=== PATIENT | female | born 1985 | race Caucasian/White ===

== ENCOUNTER 2017-10-08 11:21 | Emergency (ER) | payer OTHER ==
[2017-10-08 12:48] VITALS: BP 118/78
--- NOTE | 2017-10-08 13:08 | UC ---
Throat Pain/Nasal [place] HPI - HPI Summary HPI Summary: 4-5 days of cough congestion. She has asthma but has not had wheezing or need to use albuterol. She is breast feading. No fever or chest pain. No sob or productive cough. - History of Current Complaint Chief Complaint: UCGeneralIllness Stated Complaint: COUGH,SINUSES Time Seen by Provider: 10/08/17 12:41 Hx Obtained From: Patient Hx Last Menstrual Period: 03/02/16 Onset/Duration: Gradual Onset, Lasting Days, Still Present Severity: Moderate Pain Intensity: 5 Cough: Nonproductive Associated Signs & Symptoms: Positive: Dysphagia, Sinus Discomfort. Negative: Fever, Vomiting, Rash - Allergies/Home Medications Allergies/Adverse Reactions: Allergies Allergy/AdvReac Type Severity Reaction Status Date / Time amoxicillin [From Augmentin] AdvReac See Comment Verified 10/08/17 12:43 clavulanic acid AdvReac See Comment Verified 10/08/17 12:43 [From Augmentin] Home Medications: Home Medications Cetirizine* [ZyrTEC 10 MG TAB*] 10 mg PO DAILY 10/08/17 [History Confirmed 10/08] Cyanocobalamin TAB* [Vitamin B12 TAB*] 1,000 mcg PO DAILY 10/08/17 [History Confirmed 10/08/17] FLUoxetine CAP* [PROzac CAP*] 10 mg PO DAILY 10/08/17 [History Confirmed ] Pnv No.95/Ferrous Fum/Folic AC [ Vitamin & Minera 28-0.8 mg] 1 tab PO DAILY 10/08/17 [History Confirmed 10/08/17] PMH/Surg Hx/FS Hx/Imm Hx Previously Healthy: No - asthma. - Surgical History Surgical History: None - Family History Known Family History: Positive: None, Unknown, Hypertension - Social History Lives: With Family Alcohol Use: Occasionally Substance Use Type: None Smoking Status (MU): Former Smoker Type: Cigarettes Amount Used/How Often: 1 pack per week Length of Time of Smoking/Using Tobacco: 04/06 PPD x 10 Years When Did the Patient Quit Smoking/Using Tobacco: 2016 - Immunization History Most Recent Influenza Vaccination: none Review of Systems ENT: Sore Throat, Sinus Congestion Respiratory: Cough All Other Systems Reviewed And Are Negative: Yes Physical Exam Triage Information Reviewed: Yes Appearance: Well-Appearing, No Pain Distress, Well-Nourished Vital Signs: Initial Vital Signs Temp 99.2 F 10/08/17 12:41 Pulse 100 10/08/17 12:41 Resp 16 10/08/17 12:41 BP 118/78 10/08/17 12:41 Pulse Ox 98 10/08/17 12:41 Vital Signs Reviewed: Yes Eyes: Positive: Conjunctiva Clear, Conjunctiva Inflamed ENT: Positive: Normal ENT inspection, Hearing grossly normal, Pharynx normal, Nasal congestion, TMs normal - Clear TM without redness but there is erickson mild clear effusions., Uvula midline. Negative: Pharyngeal erythema, Nasal drainage , TM bulging, TM dull, TM red, Muffled voice, Sinus tenderness Neck: Positive: Supple, Nontender, No Lymphadenopathy Respiratory: Positive: Lungs clear, Normal breath sounds, No respiratory distress. Negative: No accessory muscle use, Respiratory distress, Decreased breath sounds, Accessory muscle use, Crackles, Rhonchi, Stridor, Wheezing, Expiration Cardiovascular: Positive: No Murmur, Pulses Normal, Brisk Capillary Refill Abdomen Description: Positive: No Organomegaly, Soft. Negative: Distended, Guarding Musculoskeletal: Positive: Strength Intact, ROM Intact, No Edema Neurological: Positive: Alert, Muscle Tone Normal. Negative: Fatigued Psychological: Positive: Age Appropriate Behavior Skin: Negative: rashes Throat Pain/Nasal Course/Dx - Differential Dx/Diagnosis Provider Diagnoses: uri viral. early sinusitis. Discharge - Sign-Out/Discharge Documenting (check all that apply): Patient Departure - Discharge Plan Condition: Good Disposition: HOME Prescriptions: Azithromyxin CONNOR (NF) [Z-Connor (Zithromax) 250 mg tabs #6] 2 tab PO .TODAY, THEN 1 DAILY #6 tab Patient Education Materials: Upper Respiratory Infection (ED) Referrals: Lakesha Yates [Primary Care Provider] - Additional Instructions: Take the antiobiotic if not better in about 3-5 days. For now focus on nasal irrigation. - Billing Disposition and Condition Condition: GOOD Disposition: Home
== END 2017-10-08 13:05 | disposition home or self-care (01) ==
LOC: UCCORT 11:21
DX: J32.9 Chronic sinusitis, unspecified (principal); J06.9 Acute upper respiratory infection, unspecified; J45.909 Unspecified asthma, uncomplicated; Z88.0 Allergy status to penicillin; Z87.891 Personal history of nicotine dependence
CPT/HCPCS: 99212; G0463

== ENCOUNTER 2019-01-09 16:23 | Emergency (ER) | payer OTHER ==
[2019-01-09 16:51] VITALS: BP 146/93
--- NOTE | 2019-01-09 17:20 | UC ---
Respiratory Complaint HPI - HPI Summary HPI Summary: C/O cough with wheezing x 6 days. Seen in the ER 01/07 and given benzonatate. Not helping. Still smoking 2 cigarettes/ day. - History of Current Complaint Chief Complaint: UCRespiratory Stated Complaint: COUGH/WHEEZE/SORE THROAT/DIARRHEA Hx Obtained From: Patient Hx Last Menstrual Period: "couple weeks ago" ?: No Onset/Duration: Sudden Onset, Lasting Days - 6, Still Present Timing: Constant Severity Initially: Mild Severity Currently: Mild Pain Intensity: 3 Character: Cough: Nonproductive Aggravating Factors: Deep Breaths, Recumbent Position Alleviating Factors: Nothing Associated Signs And Symptoms: Positive: Wheezing, URI, Nasal Congestion, Sinus Discomfort - 2 days ago. Better - Risk Factors Pulmonary Embolism Risk Factors: Smoking Cardiac Risk Factors: Smoking - Allergies/Home Medications Allergies/Adverse Reactions: Allergies Allergy/AdvReac Type Severity Reaction Status Date / Time No Known Allergies Allergy Verified 01/09/19 16:45 Home Medications: Home Medications Sertraline* [Zoloft*] 20 mg DAILY 01/09/19 [History Confirmed 01/09/19] cloNIDine TAB* [Catapres 0.1 MG TAB*] 1 tab QPM 01/09/19 [History Confirmed 03/18] PMH/Surg Hx/FS Hx/Imm Hx Respiratory History: Pneumonia - Surgical History Surgical History: None - Family History Known Family History: Positive: Hypertension Negative: Diabetes - Social History Occupation: Employed Full-time Lives: With Family Alcohol Use: Occasionally Substance Use Type: None Smoking Status (MU): Light Every Day Tobacco Smoker Type: Cigarettes Amount Used/How Often: 2-4 cigs/day Length of Time of Smoking/Using Tobacco: 04/06 PPD x 10 Years When Did the Patient Quit Smoking/Using Tobacco: 2017 Cessation Counseling: Patient Advised to Stop - Immunization History Most Recent Influenza Vaccination: none Review of Systems All Other Systems Reviewed And Are Negative: Yes Respiratory: Positive: Shortness Of Breath, Cough Physical Exam Triage Information Reviewed: Yes Appearance: Well-Appearing, No Pain Distress, Well-Nourished Vital Signs: Initial Vital Signs Temp 98.4 F 01/09/19 16:47 Pulse 98 01/09/19 16:47 Resp 16 01/09/19 16:47 BP 146/93 01/09/19 16:47 Pulse Ox 98 01/09/19 16:47 Vital Signs Reviewed: Yes Eyes: Positive: Conjunctiva Clear ENT: Positive: Pharynx normal, Nasal congestion - with allergic changes., TMs normal Neck exam: Normal Respiratory: Positive: Wheezing - diffuse moderate inspiratory and expiratory wheezes. Cardiovascular: Positive: RRR, No Murmur Musculoskeletal Exam: Normal Neurological Exam: Normal Psychological Exam: Normal Skin Exam: Normal Respiratory Course/Dx - Differential Dx/Diagnosis Differential Diagnosis/HQI/PQRI: Asthma, Laryngitis, Lower Resp Infection, Sinusitis Provider Diagnosis: Upper respiratory infection with cough and congestion, Reactive airway disease with wheezing Discharge ED - Sign-Out/Discharge Documenting (check all that apply): Patient Departure All imaging exams completed and their final reports reviewed: No Studies - Discharge Plan Condition: Stable Disposition: HOME Prescriptions: Albuterol HFA INHALER* [Ventolin HFA Inhaler*] 2 puff INH Q4H PRN #1 mdi PRN Reason: Wheezing predniSONE TAB* [Deltasone 20 MG TAB*] 60 mg PO DAILY #18 tab Patient Education Materials: Reactive Airways Disease (ED), Prednisone (By mouth) Referrals: Lakesha Yates [Primary Care Provider] - Additional Instructions: Smoking Cessation Tricks. 1. Cut down by 1 cigarette per day every 2-3 days. Write the number of smokes for that day on the calendar. 2. Identify triggers to smoking: after meals, on the phone, in the car, with coffee, on breaks at work, etc. 3. Formulate a plan with a behavior to replace the smoking. Fireballs in the car , doodle pad on the phone, flavored creamer for the coffee, go for a walk after a meal or on break at work. 4. For stress smokes do deep breathing relaxation. Breath deep in through the nose hold the breath in for a few seconds then breath out slowly through the mouth. - Billing Disposition and Condition Condition: STABLE Disposition: Home
== END 2019-01-09 17:25 | disposition home or self-care (01) ==
LOC: UCCORT 16:23
DX: F17.210 Nicotine dependence, cigarettes, uncomplicated (principal); J06.9 Acute upper respiratory infection, unspecified; R05 Cough; R09.89 Other specified symptoms and signs involving the circulatory and respiratory systems; J45.909 Unspecified asthma, uncomplicated; R06.2 Wheezing
CPT/HCPCS: 99212; G0463